=== PATIENT | male | born 1940 | race Caucasian/White ===

== ENCOUNTER 2018-04-06 07:21 | Emergency (ER) | payer MEDICARE ==
[~2018-04-06] VITALS: Ht 180.3 cm; Wt 94.4 kg
[~2018-04-06 07:21] MED LIST: AMLO5TAB2 PO; APIX5TAB PO; ASPI-496 PO; ASPI325T17 PO; CALC-141 PO; CALCIUM PO; CHOL200074 PO; CHON PO; CYAN50003 PO; EZET10TA18 PO; FENO54TA17 PO; GABA300C10 PO; GLUC PO; HYDR-3237 PO; KRIL1CAP19 PO; LOSA1TAB19 PO; MAGN300C PO; MILK500C PO; MSM PO; MULT-6 PO; OMEG-14 PO; TAMS0.4C2 PO; UBID100C24 PO
[2018-04-06 09:28] LABS: MICROSCOPIC AUTO
[2018-04-06 09:33] VITALS: BP 116/64
[2018-04-06 09:34] LABS: CULTURE INDICATED? YES
== END 2018-04-06 10:50 | disposition home or self-care (01) ==
LOC: ED 10:22
DX: N40.1 Benign prostatic hyperplasia with lower urinary tract symptoms (principal); R33.8 Other retention of urine; N30.90 Cystitis, unspecified without hematuria; I10 Essential (primary) hypertension; I48.91 Unspecified atrial fibrillation; Z87.891 Personal history of nicotine dependence
CPT/HCPCS: 51702; 81001; 87077; 87086; 87186; 99284

== ENCOUNTER 2018-04-06 23:14 | Emergency (ER) | payer MEDICARE ==
[~2018-04-06] VITALS: Ht 180.3 cm; Wt 94.0 kg
[2018-04-07 01:05] VITALS: BP 118/80
== END 2018-04-07 01:07 | disposition home or self-care (01) ==
LOC: ED 04-07 00:23
DX: T83.038D Leakage of other urinary catheter, subsequent encounter (principal); I10 Essential (primary) hypertension; G62.9 Polyneuropathy, unspecified; I48.91 Unspecified atrial fibrillation; R31.9 Hematuria, unspecified; Z88.8 Allergy status to other drugs, medicaments and biological substances; Y84.6 Urinary catheterization as the cause of abnormal reaction of the patient, or of later complication, without mention of misadventure at the time of the procedure; Y92.89 Other specified places as the place of occurrence of the external cause
CPT/HCPCS: 51702; 99284

== ENCOUNTER → 2019-04-02 | Outpatient (CLI) | payer MEDICARE ==
[~2019-04-02] MED LIST changes: +AMLO-150 PO; -AMLO5TAB2 PO; +OMNIPAQUE 350 MG/ML, 100ML BOTTLE ONE
== END | disposition home or self-care (01) ==
LOC: CFH 08:58
PROVIDERS: ATTEND Nurse Practitioner Primary Care
DX: N28.1 Cyst of kidney, acquired (principal)
CPT/HCPCS: 74170; Q9967

== ENCOUNTER → 2021-02-01 | Outpatient (CLI) | payer MEDICARE ==
[~2021-02-01] MED LIST changes: -EZET10TA18 PO; +EZET10TA70 PO
== END | disposition home or self-care (01) ==
LOC: CFH 10:14
PROVIDERS: ATTEND Nurse Practitioner
DX: N28.1 Cyst of kidney, acquired (principal); K59.00 Constipation, unspecified; R19.02 Left upper quadrant abdominal swelling, mass and lump
CPT/HCPCS: 74177; 82565; Q9967